=== PATIENT | male | born 2005 | race Caucasian/White ===

== ENCOUNTER 2023-02-10 11:26 | Emergency (ER) | payer MEDICAID ==
[~2023-02-10] VITALS: Ht 170.2 cm; Wt 168.0 kg
[~2023-02-10 11:26] MED LIST: epiNEPHrine 0.1mg/ml 10ml syringe ONE; sodium bicarbonate (8.4%) 1 mEq/ml syringe ONE
[2023-02-10 11:28] VITALS: TEMP 99.5
[2023-02-10] MEDS ORDERED: normal saline 1000ML IV soln IVB ONE (12:05)
[2023-02-10] MEDS ORDERED: carVEDilol 3.125mg tablet PO SCH (12:05)
[2023-02-10] MEDS ORDERED: nitroGLYCERIN 0.4mg/hour patch TD ONE (12:05)
--- NOTE | 2023-02-10 12:06 | NUR ---
Dr Schwartz aware patient meets sepsis criteria and encouraged the 30 ml/kg IVF resuscitation. states he will order 1L bolus at a time r/t heart failure.
--- NOTE | 2023-02-10 12:37 | NUR ---
PT 75/[address] ANSARI AT BEDSIDE X2L INFUSING VIA PRESSURE BAG HR [address]
--- NOTE | 2023-02-10 12:41 | NUR ---
NGT PATCH REMOVED AT 1235
[2023-02-10 12:52] LABS: ABG BASE EXCESS -12.5 mmol/L (-2.0-2.0); ABG HCO3 14.8 mmol/L (22.0-26.0); ABG OXYGEN SATURATION 86.9 % (94-97); ABG PO2 (T) 61.7 mmHg (75.0-100.0); ALLEN'S TEST POSITIVE; FCOHb 1.2 % (0.0-3.9); FHHb 12.9 % (0.0-5.0); FLOW 6 L/min; FMetHb 0.5 % (0.0-1.5); FO2Hb 85.4 % (94-97); MODE NASAL CANNULA; PATIENT TEMPERATURE 37.5; TOTAL HEMOGLOBIN 18.6 G/dl (14.0-17.9)
[2023-02-10 12:57] LABS: ALANINE AMINOTRANSFERASE 52 U/L (12-78); ALBUMIN 2.2 G/DL (3.4-5.0); ALBUMIN/GLOBULIN RATIO 0.5 (1.1-1.5); ALKALINE PHOSPHATASE 67 IU/L (20-180); ANION GAP 14 (8-16); ASPARTATE AMINO TRANSFERASE 59 U/L (10-37); BLOOD UREA NITROGEN 30 MG/DL (7-18); BUN/CREATININE RATIO 8.5 (10.0-20.0); CALCIUM 9.1 MG/DL (8.5-10.1); CHLORIDE 100 MMOL/L (99-107); CREATININE 3.55 MG/DL (0.60-1.10); GLUCOSE 169 MG/DL (70-104); SODIUM 139 MMOL/L (135-145); TOTAL CARBON DIOXIDE 24.7 MMOL/L (24-32); TOTAL PROTEIN 6.6 G/DL (6.4-8.2); eCRCL 31 ML/MIN; eGFR 22 ML/MIN
[2023-02-10 13:08] LABS: MAGNESIUM 2.4 MG/DL (1.5-2.4); PRO BRAIN NATRIURETIC PEPTIDE 8792 PG/ML (0-125); THYROID STIMULATING HORMONE 23.48 ulU/ml (0.34-4.50)
--- NOTE | 2023-02-10 13:08 | NUR ---
HEALTH INSPECTOR FOOD AT BEDSIDE W DR ANSARI DISCUSSING RESULTS
[2023-02-10 13:19] LABS: POTASSIUM 4.9 MMOL/L (3.5-5.1)
--- NOTE | 2023-02-10 13:21 | NUR ---
upon time goldy tried to do repeat EKG the ocular care technologist was in there, goldy asked MD if he wanted tech to do an EKG first, MD told goldy to wait to do the EKG until the echo was done on the pt.
[2023-02-10 13:33] VITALS: PULSE 120; RESP 29; O2SAT 94
[2023-02-10 13:39] VITALS: BP 139/57
--- NOTE | 2023-02-10 15:02 | NUR ---
1333 echo in progress pt verbalize "it's hard for me to breath in this position" hob elevated pt encouraged to breath through his nose to received full effects of o2 via nc "it's still hard to breath" [address] Schwartz notified RT paged to ED by Aj HOFFMANN Coating Mixer Supervisor [id number] pt began to vomit drk brown emesis suctioning applied immediately Dr Schwartz called to bedside pt then began to have massive nasal discharge drk brown substance along w oral emesis copious amounts suctioning ineffective pt bit down on yankour 1338 pt unresponsive cpr initiated see code sheet for full details
--- NOTE | 2023-02-10 17:55 | NUR ---
Spoke with uncle Arnav Cordon [phone], states family wishes patient to go to [place] [facility]. Phone call made to mortuary, states they will oyster picker remains in approximately one hour.
--- NOTE | 2023-02-10 18:13 | NUR ---
family called back [facility] will be transporting pt back to [place] ETA 1 hour
--- NOTE | 2023-02-10 18:51 | NUR ---
home transport at bedside
--- NOTE | 2023-02-10 19:06 | NUR ---
per dr betancourt request, pt needs to be a hr consultant case and wants to speak with hr consultant. called [employer] to reach hr consultant, awaiting return call. sent residential recycle driver back to [place] until further notice.
--- NOTE | 2023-02-10 19:11 | NUR ---
deputy little returned call, currently speaking with dr betancourt.
--- NOTE | 2023-02-10 19:37 | NUR ---
per dr betancourt, after talking with engineering instructor sidney, pt is not a engineering instructor's case and is to be released to the home. [facility] in [place] called to return back, eta 1 hr.
== END 2023-02-10 21:51 ==
LOC: ER 11:27
DX: A41.89 Other specified sepsis (principal); N17.9 Acute kidney failure, unspecified; K92.2 Gastrointestinal hemorrhage, unspecified; G47.30 Sleep apnea, unspecified; I16.0 Hypertensive urgency; I31.39 Other pericardial effusion (noninflammatory); I46.9 Cardiac arrest, cause unspecified
CPT/HCPCS: 36415; 36600; 80053; 82803; 83605; 83735; 83880; 84145; 84443; 84484; 85018; 87040; 92950; 93005; 93308; 96360; 99291; 99292; J0171; J3490; J7030; A4620; C1758